=== PATIENT | female | born 1990 | race American Indian/Alaskan Native ===

== ENCOUNTER 2021-11-18 08:46 | Emergency (ER) | payer SELFPAY ==
[2021-11-18 12:47] LABS: Mucus,Urine 3+ /HPF
[2021-11-18 12:55] LABS: Basophils % (Auto) 0.4 % (0.0-1.8); Eosinophils % (Auto) 0.5 % (0.0-4.3); Hematocrit 39.2 % (30.3-42.9); Hemoglobin 12.6 gm/dl (10.1-14.3); Lymphocytes # (Auto) 2.1 K/mm3 (1.2-5.4); Lymphocytes % (Auto) 25.4 % (13.4-35.0); Mean Corpuscular HGB Conc 32 % (30-34); Mean Corpuscular Volume 85 fl (79-97); Monocytes # (Auto) 0.5 K/mm3 (0.0-0.8); Monocytes % (Auto) 5.6 % (0.0-7.3); Platelet Count 269 K/mm3 (140-440); Red Blood Count 4.62 M/mm3 (3.65-5.03); Red Cell Distribution Width 15.2 % (13.2-15.2)
[2021-11-18 13:00] LABS: INR 0.85 (0.87-1.13)
[2021-11-18 13:01] LABS: Partial Thromboplastin Time 30.2 Sec. (24.2-36.6)
[2021-11-18 13:07] LABS: Color,Urine Straw (Yellow)
--- NOTE | 2021-11-18 15:00 | Emergency Department Report ---
ED HPI - General Chief complaint: Vaginal Bleeding Stated complaint: /BLEEDING X11DAY Time Seen by Provider: 11/18/21 11:08 Source: patient Mode of arrival: Ambulatory Limitations: No Limitations - History of Present Illness Initial comments: This is a 30-year-old female nontoxic, well nourished in appearance, no acute signs of distress presents to the ED with c/o of vaginal bleeding and pelvic cramping x1 day. Patient stated yesterday she noticed some spotting and primarily only when she wipes after the restroom. Patient denies any abdominal pain. Patient stated has some pelvic cramping. Patient denies any vaginal discharge or foul odor. Patient denies any nausea, vomiting, chest pain, shortness of breathe, fever, chills, headache, stiff neck, numbness, tingling. Patient denies any urinary symptoms. Patient denies any allergies or PMH. MD Complaint: vaginal bleeding -: days(s) Location: pelvis Radiation: none Severity: mild Severity scale (0 -10): 3 Quality: cramping Consistency: intermittent Improves with: none Worsens with: none Associated symptoms: vaginal bleeding. denies: nausea/vomiting, vaginal discharge, abdominal pain, dysuria, headache, vision changes, malaise, dysparuenia, rash, seizure, shortness of breath, syncope, weakness Vaginal bleeding: light :: Yes Number of weeks : 11 - Related Data Allergies Allergy/AdvReac Type Severity Reaction Status Date / Time No Known Allergies Allergy Verified 11/18/21 09:08 ED Review of Systems ROS: Stated complaint: /BLEEDING X11DAY Other details as noted in HPI Comment: All other systems reviewed and negative Constitutional: denies: chills, fever Eyes: denies: eye pain, eye discharge, vision change ENT: denies: ear pain, throat pain Respiratory: denies: cough, shortness of breath, wheezing Cardiovascular: denies: chest pain, palpitations Endocrine: no symptoms reported Gastrointestinal: denies: abdominal pain, nausea, diarrhea Genitourinary: abnormal menses. denies: urgency, dysuria, frequency, hematuria, discharge, dyspareunia Musculoskeletal: denies: back pain, joint swelling, arthralgia Skin: denies: rash, lesions Neurological: denies: headache, weakness, paresthesias Psychiatric: denies: anxiety, depression Hematological/Lymphatic: denies: easy bleeding, easy bruising ED Physical Exam - General Limitations: No Limitations General appearance: alert, in no apparent distress - Head Head exam: Present: atraumatic, normocephalic - Eye Eye exam: Present: normal appearance - Neck Neck exam: Present: full ROM - Respiratory Respiratory exam: Absent: respiratory distress - Cardiovascular Cardiovascular Exam: Present: regular rate - GI/Abdominal GI/Abdominal exam: Present: soft, normal bowel sounds. Absent: distended, tenderness, guarding, rebound, rigid, diminished bowel sounds - Extremities Exam Extremities exam: Present: full ROM - Back Exam Back exam: Present: normal inspection, full ROM. Absent: tenderness, CVA tenderness (R), CVA tenderness (L), muscle spasm, paraspinal tenderness, vertebral tenderness, rash noted - Neurological Exam Neurological exam: Present: alert, oriented X3, normal gait - Psychiatric Psychiatric exam: Present: normal affect, normal mood - Skin Skin exam: Present: warm, dry, intact, normal color. Absent: rash ED Course Vital Signs 11/18/21 09:04 Temperature 98.1 F Pulse Rate 68 Respiratory 16 Rate Blood Pressure 152/90 [Right] O2 Sat by Pulse 98 Oximetry - Reevaluation(s) Reevaluation #1: 11/18/21 15:00 Patient is speaking in full sentences with no signs of distress noted. - Consultations Consultation #1: 11/18/21 17:20 Patient has been consulted with Dr. Retana (OBGYN) about patient history, physical exam, and labs/imaging results and stated patient to receive methotrexate 50mg/m2 IM and discharge with follow-up in day 4 for lab results and day 7. ED Medical Decision Making - Lab Data Result diagrams: 11/18/21 12:36 Lab Results 11/18/21 11/18/21 11/18/21 Range/Units 11:41 12:36 12:36 WBC 8.3 (4.5-11.0) K/mm3 RBC 4.62 (3.65-5.03) M/mm3 Hgb 12.6 (10.1-14.3) gm/dl Hct 39.2 (30.3-42.9) % MCV 85 (79-97) fl MCH 27 L (28-32) pg MCHC 32 (30-34) % RDW 15.2 (13.2-15.2) % Plt Count 269 (140-440) K/mm3 Lymph % (Auto) 25.4 (13.4-35.0) % Canadian % (Auto) 5.6 (0.0-7.3) % Eos % (Auto) 0.5 (0.0-4.3) % Baso % (Auto) 0.4 (0.0-1.8) % Lymph # (Auto) 2.1 (1.2-5.4) K/mm3 Canadian # (Auto) 0.5 (0.0-0.8) K/mm3 Eos # (Auto) 0.0 (0.0-0.4) K/mm3 Baso # (Auto) 0.0 (0.0-0.1) K/mm3 Seg Neutrophils % 68.1 (40.0-70.0) % Seg Neutrophils # 5.7 (1.8-7.7) K/mm3 PT 12.8 (12.2-14.9) Sec. INR 0.85 L (0.87-1.13) APTT 30.2 (24.2-36.6) Sec. HCG, Quant (0-4) mIU/mL Urine Color Straw (Yellow) Urine Turbidity Clear (Clear) Specific Hustle (Man) 1.010 (1.003-1.030) Ur Protein (Man) Negative (Negative) mg/dL Ur Ketones (Man) Negative (Negative) Ur Nitrite (Man) Negative (Negative) Ur Reducing Substances Not Reportable Urine Bilirubin (Man) Negative (Negative) Urine Ictotest Not Reportable Leukocyte Esterase (Man) Negative (Negative) Urine WBC (Auto) 6.0 (0.0-6.0) /HPF Urine RBC (Auto) 7.0 (0.0-6.0) /HPF U Epithel Cells (Auto) 11.0 (0-13.0) /HPF Urine RBC (Manual) Negative (Negative) Urine Mucus 3+ /HPF Blood Type 11/18/21 11/18/21 Range/Units 12:36 12:36 WBC (4.5-11.0) K/mm3 RBC (3.65-5.03) M/mm3 Hgb (10.1-14.3) gm/dl Hct (30.3-42.9) % MCV (79-97) fl MCH (28-32) pg MCHC (30-34) % RDW (13.2-15.2) % Plt Count (140-440) K/mm3 Lymph % (Auto) (13.4-35.0) % Canadian % (Auto) (0.0-7.3) % Eos % (Auto) (0.0-4.3) % Baso % (Auto) (0.0-1.8) % Lymph # (Auto) (1.2-5.4) K/mm3 Canadian # (Auto) (0.0-0.8) K/mm3 Eos # (Auto) (0.0-0.4) K/mm3 Baso # (Auto) (0.0-0.1) K/mm3 Seg Neutrophils % (40.0-70.0) % Seg Neutrophils # (1.8-7.7) K/mm3 PT (12.2-14.9) Sec. INR (0.87-1.13) APTT (24.2-36.6) Sec. HCG, Quant 369.2 H (0-4) mIU/mL Urine Color (Yellow) Urine Turbidity (Clear) Specific Hustle (Man) (1.003-1.030) Ur Protein (Man) (Negative) mg/dL Ur Ketones (Man) (Negative) Ur Nitrite (Man) (Negative) Ur Reducing Substances Urine Bilirubin (Man) (Negative) Urine Ictotest Leukocyte Esterase (Man) (Negative) Urine WBC (Auto) (0.0-6.0) /HPF Urine RBC (Auto) (0.0-6.0) /HPF U Epithel Cells (Auto) (0-13.0) /HPF Urine RBC (Manual) (Negative) Urine Mucus /HPF Blood Type A POSITIVE - Radiology Data [facility] [address] [place] [address] Ultrasound Report Signed Patient: LUCIAN BUCK MR#: [id number] : 1990 Acct:[id number] Age/Sex: 30 / F ADM Date: 11/18/21 Loc: ED Attending Dr: Ordering Physician: YSABEL MENDOZA NP Date of Service: 11/18/21 Procedure(s): US OB <= 14 weeks fetus Accession Number(s): [id number] cc: YSABEL MENDOZA NP ULTRASOUND OBSTETRIC REASON FOR EXAM: vaginal bleeding and pelvic pain TECHNIQUE: Transabdominal and transvaginal ultrasound was performed to evaluate a first trimester . COMPARISON: None available. FINDINGS: Uterus measures 8.6 x 4.1 x 5.0 cm. Endometrial stripe measures 9 mm there is no IUP identified. Right ovary is unremarkable. Normal Doppler flow. Left ovary measures 2.7 cm. In the left adnexa, there is 1.5 x 1.0 cm complex masslike structure adjacent to the left ovary. Within this structure, there is a very small cystic structure, which is suspicious for a tiny gestational sac. This measures 3 mm, corresponding to a gestational age of 5 weeks and 0 days. No yolk sac or pole is identified. There is no significant free fluid. IMPRESSION: Findings suspicious for left adnexal ectopic . No free fluid to suggest rupture. Recommend STACKER STRAIGHTENER consultation. CRITICAL RESULT: Time of Discovery (LATHE SET UP PERSON/CDT): 11/18/21 @ 3:05 pm Time of Communication (LATHE SET UP PERSON/CDT): 3:06 pm Licensed Practitioner Receiving Report: Dr. Mendoza Read-Back Performed: Yes. Signer Name: Arik Bustamante MD Signed: 11/18/2021 4:06 PM Workstation Name: [id number] Transcribed By: ROMI Dictated By: ARIK BUSTAMANTE MD Electronically Authenticated By: ARIK BUSTAMANTE MD Signed Date/Time: 11/18/21 1606 DD/ 1559 TD/TT: [facility] [address] [place] [address] Ultrasound Report Signed Patient: LUCIAN BUCK MR#: [id number] : 1990 Acct:[id number] Age/Sex: 30 / F ADM Date: 11/18/21 Loc: ED Attending Dr: Ordering Physician: YSABEL MENDOZA NP Date of Service: 11/18/21 Procedure(s): US OB transvaginal Accession Number(s): [id number] cc: YSABEL MENDOZA NP ULTRASOUND OBSTETRIC REASON FOR EXAM: vaginal bleeding and pelvic pain TECHNIQUE: Transabdominal and transvaginal ultrasound was performed to evaluate a first trimester . COMPARISON: None available. FINDINGS: Uterus measures 8.6 x 4.1 x 5.0 cm. Endometrial stripe measures 9 mm there is no IUP identified. Right ovary is unremarkable. Normal Doppler flow. Left ovary measures 2.7 cm. In the left adnexa, there is 1.5 x 1.0 cm complex masslike structure adjacent to the left ovary. Within this structure, there is a very small cystic structure, which is suspicious for a tiny gestational sac. This measures 3 mm, corresponding to a gestational age of 5 weeks and 0 days. No yolk sac or pole is identified. There is no significant free fluid. IMPRESSION: Findings suspicious for left adnexal ectopic . No free fluid to suggest rupture. Recommend STACKER STRAIGHTENER consultation. CRITICAL RESULT: Time of Discovery (LATHE SET UP PERSON/CDT): 11/18/21 @ 3:05 pm Time of Communication (LATHE SET UP PERSON/CDT): 3:06 pm Licensed Practitioner Receiving Report: Dr. Mendoza Read-Back Performed: Yes. Signer Name: Arik Bustamante MD Signed: 11/18/2021 4:06 PM Workstation Name: [email or web address] Transcribed By: ROMI Dictated By: ARIK BUSTAMANTE MD Electronically Authenticated By: ARIK BUSTAMANTE MD Signed Date/Time: 11/18/21 1606 DD/ 1559 TD/TT: - Medical Decision Making 30-year-old female that presents with left ectopic . Patient is stable and was examined by me. Patient was consulted with Dr. Mojica. Please see notes for consultation. Patient received IM methotrexate. Patient given strict precautions to return and 4 days and day 7 to STACKER STRAIGHTENER or emergency room for repeat labs and proper evaluation/treatment. Patient is notified of the lab results and ultrasound report with no questions noted by the patient. Patient was instructed to follow-up with a OBGYN doctor in 4 days or return to the ED to obtain labs or if symptoms worsen and continue return to emergency room as soon as possible. At time of discharge, the patient does not seem toxic or ill in appearance. No acute signs of distress noted. Patient agrees to discharge treatment plan of care. No further questions noted by the patient. Critical care attestation.: If time is entered above; I have spent that time in minutes in the direct care of this critically ill patient, excluding procedure time. ED Disposition Clinical Impression: Ectopic of left ovary Disposition: 01 HOME / SELF CARE / HOMELESS Is pt being admited?: No Does the pt Need Aspirin: No Condition: Stable Instructions: Methotrexate Treatment for an Ectopic , Care After, Ectopic Additional Instructions: Follow-up with a OBGYN doctor in 4 days or return to the ED to obtain labs or if symptoms worsen and continue return to emergency room as soon as possible. Referrals: PRIMARY CARE, [Primary Care Provider] - 3-5 Days GERALDO NOVOA MD [Staff Physician] - 11/22/21 Forms: Methotrexate D/C Instructions Time of Disposition: 17:25
--- NOTE | 2021-11-18 16:11 | Ultrasound Report ---
ULTRASOUND OBSTETRIC REASON FOR EXAM: vaginal bleeding and pelvic pain TECHNIQUE: Transabdominal and transvaginal ultrasound was performed to evaluate a first trimester pre gnancy. COMPARISON: None available. FINDINGS: Uterus measures 8.6 x 4.1 x 5.0 cm. Endometrial stripe measures 9 mm there is no IUP identified. Right ovary is unremarkable. Normal Doppler flow. Left ovary measures 2.7 cm. In the left adnexa, there is 1.5 x 1.0 cm complex masslike structure brady cent to the left ovary. Within this structure, there is a very small cystic structure, which is suspi cious for a tiny gestational sac. This measures 3 mm, corresponding to a gestational age of 5 weeks a nd 0 days. No yolk sac or pole is identified. There is no significant free fluid. IMPRESSION: Findings suspicious for left adnexal ectopic . No free fluid to suggest rupture. Recommend O B/KNOT TYING OPERATOR consultation. CRITICAL RESULT: Time of Discovery (BUGGY RUNNER/CDT): 11/18/21 @ 3:05 pm Time of Communication (BUGGY RUNNER/CDT): 3:06 pm Licensed Practitioner Receiving Report: Dr. Sutherland Read-Back Performed: Yes. Signer Name: Vinh Bustamante MD Signed: 11/18/2021 4:06 PM Workstation Name: [email or web address]
--- NOTE | 2021-11-18 16:11 | Ultrasound Report ---
ULTRASOUND OBSTETRIC REASON FOR EXAM: vaginal bleeding and pelvic pain TECHNIQUE: Transabdominal and transvaginal ultrasound was performed to evaluate a first trimester pre gnancy. COMPARISON: None available. FINDINGS: Uterus measures 8.6 x 4.1 x 5.0 cm. Endometrial stripe measures 9 mm there is no IUP identified. Right ovary is unremarkable. Normal Doppler flow. Left ovary measures 2.7 cm. In the left adnexa, there is 1.5 x 1.0 cm complex masslike structure brady cent to the left ovary. Within this structure, there is a very small cystic structure, which is suspi cious for a tiny gestational sac. This measures 3 mm, corresponding to a gestational age of 5 weeks a nd 0 days. No yolk sac or pole is identified. There is no significant free fluid. IMPRESSION: Findings suspicious for left adnexal ectopic . No free fluid to suggest rupture. Recommend O B/MECHANICAL INTERN consultation. CRITICAL RESULT: Time of Discovery (CENTER MEDICAL SPECIALIST/CDT): 11/18/21 @ 3:05 pm Time of Communication (CENTER MEDICAL SPECIALIST/CDT): 3:06 pm Licensed Practitioner Receiving Report: Dr. Sutherland Read-Back Performed: Yes. Signer Name: Vinh Bustamante MD Signed: 11/18/2021 4:06 PM Workstation Name: [email or web address]
[2021-11-18 17:54] LABS: INR 0.89 (0.87-1.13)
[2021-11-18 20:39] VITALS: BP 143/85
== END 2021-11-18 20:39 | disposition home or self-care (01) ==
LOC: ED 08:46
DX: O00.80 Other ectopic pregnancy without intrauterine pregnancy (principal); Z3A.11 11 weeks gestation of pregnancy
CPT/HCPCS: 36415; 76801; 76817; 81001; 84702; 85025; 85610; 85730; 86900; 86901; 96372; 99284; J9260